=== PATIENT | male | born 1985 | race Caucasian/White ===

== ENCOUNTER 2017-09-21 09:49 | Emergency (ER) | payer MEDICAID ==
[~2017-09-21] VITALS: Ht 170.2 cm; Wt 66.0 kg
[2017-09-21] MEDS ORDERED: IBUPROFEN 600MG TABLET PO STA (11:50)
[2017-09-21 12:05] VITALS: BP 134/82
== END 2017-09-21 12:12 | disposition home or self-care (01) ==
LOC: ER 09:49
DX: M43.6 Torticollis (principal); F17.200 Nicotine dependence, unspecified, uncomplicated; F12.10 Cannabis abuse, uncomplicated; M25.512 Pain in left shoulder; M54.2 Cervicalgia
CPT/HCPCS: 99283

== ENCOUNTER 2020-01-23 20:27 | Inpatient (IN) | payer SELFPAY ==
[~2020-01-23] VITALS: Ht 172.7 cm; Wt 84.8 kg
[2020-01-23] MEDS ORDERED: SODIUM CHLORIDE 0.9% 1,000 ML IV ONE ×2 (20:55→22:00)
[2020-01-23] MEDS ORDERED: ONDANSETRON HCL 4MG/2ML INJ IV STA (20:55)
[2020-01-23] MEDS ORDERED: MORPHINE SULFATE 4 MG/ML CPJ (NOT FOR IM USE) IV STA (20:55)
[2020-01-23 21:10] LABS: HEMATOCRIT. 48.5 % (42.0-52.0); MEAN CORPUSCULAR HEMOGLOBIN 28.1 pg (28.0-32.0); MEAN CORPUSCULAR VOLUME 85.3 fL (80.0-94.0); MEAN PLATELET VOLUME 7.6 fl (7.4-10.4); PLATELET 335 x1000/uL (130-400); RED BLOOD CELL COUNT 5.69 mill/uL (4.7-6.1); RED CELL DISTRIBUTION WIDTH 14.3 % (11.6-14.6)
[2020-01-23 21:18] LABS: CHLORIDE 104 mEq/L (98-107)
[2020-01-23 21:21] LABS: PROTHROMBIN TIME 10.9 sec (9.6-11.0)
[2020-01-23 21:30] LABS: PLATELET ESTIMATE NORMAL
[2020-01-23] MEDS ORDERED: ONDANSETRON HCL 4MG/2ML INJ IV ONE (22:00)
[2020-01-23 23:00] LABS: CLARITY URINE CLOUDY (CLEAR); COLOR URINE YELLOW (YELLOW); KETONES URINE 3+ (NEGATIVE); LEUKOCYTE ESTERASE URINE NEGATIVE (NEGATIVE); NITRITE URINE NEGATIVE (NEGATIVE); OCCULT BLOOD URINE 1+ (NEGATIVE); PH URINE 5.5 (4.5-8.0); PROTEIN URINE 2+ (NEGATIVE); SPECIFIC GRAVITY URINE 1.032 (1.005-1.030)
[2020-01-24] MEDS ORDERED: CEFTRIAXONE 1 G PREMIX 50 ML IV ONE (00:45)
[2020-01-24] MEDS ORDERED: SODIUM CHLORIDE 0.9% 1000ML BAG (SEPSIS BOLUS) IV ONE (00:45)
[2020-01-24] MEDS ORDERED: METOCLOPRAMIDE HCL 10MG/2ML VIAL IV ONE (02:00)
[2020-01-24] MEDS ORDERED: CLONIDINE 0.1MG TABLET PO PRN (06:00)
[2020-01-24] MEDS ORDERED: MAGNESIUM/ALUMINUM HYDROXIDE/SIMETHICONE 30ML UDC PO PRN (06:00)
[2020-01-24] MEDS: DEXT 5%/0.45% NACL KCL 10MEQ/L 1,000 ML IV SCH (06:40)
[2020-01-24 08:33] VITALS: BP 123/55
[2020-01-24] MEDS: ONDANSETRON HCL 4MG/2ML INJ IV PRN (10:22)
[2020-01-24] MEDS ORDERED: THROAT LOZENGES-BENZOCAINE/MENTH/CETYLPYRD CL LOZENGES MM PRN (10:45)
[2020-01-24 12:00] VITALS: BP 153/87
[2020-01-24 16:00] VITALS: BP 146/88
[2020-01-25] MEDS: ONDANSETRON HCL 4MG/2ML INJ IV PRN ×2 (00:12→09:39)
[2020-01-25] MEDS: DEXT 5%/0.45% NACL KCL 10MEQ/L 1,000 ML IV SCH (02:54)
[2020-01-25 08:00] VITALS: BP 134/77
[2020-01-25 08:47] LABS: BASOPHILS % 0.5 % (0.0-2.0); EOSINOPHILS % 0.1 % (0.0-5.0); HEMATOCRIT. 43.6 % (42.0-52.0); HEMOGLOBIN. 14.4 g/dL (14.0-18.0); LYMPHOCYTES % 11.7 % (20.0-50.0); MEAN CORPUSCULAR HEMOGLOBIN 28.2 pg (28.0-32.0); MEAN CORPUSCULAR VOLUME 85.2 fL (80.0-94.0); MEAN PLATELET VOLUME 7.3 fl (7.4-10.4); NEUTROPHILS % 76.7 % (40.0-76.0); PLATELET 253 x1000/uL (130-400); RED BLOOD CELL COUNT 5.11 mill/uL (4.7-6.1); RED CELL DISTRIBUTION WIDTH 14.3 % (11.6-14.6)
[2020-01-25 08:59] LABS: CHLORIDE 106 mEq/L (98-107)
[2020-01-25 12:00] VITALS: BP 148/90
[2020-01-25 16:00] VITALS: BP 133/85
[2020-01-25 20:00] VITALS: BP 154/85
[2020-01-26] VITALS: BP 142/88
[2020-01-26 04:00] VITALS: BP 152/86
[2020-01-26 08:00] VITALS: BP 145/90
[2020-01-26 11:18] VITALS: BP 120/80
== END 2020-01-26 11:41 | disposition home or self-care (01) | DRG 249 ==
LOC: ER 20:27 → 6EST 01-24 01:33 → ENRESERV 01-24 07:20
PROVIDERS: ADMIT Hospitalist; ATTEND Hospitalist
DX: K52.9 Noninfective gastroenteritis and colitis, unspecified (principal); E86.0 Dehydration; E87.2 Acidosis; I10 Essential (primary) hypertension; J45.909 Unspecified asthma, uncomplicated
CPT/HCPCS: 36415; 71045; 80053; 81003; 83605; 85025; 93005; 99291; J0696; J2270; J2405; J2765; J7030

== ENCOUNTER 2020-02-19 21:31 | Emergency (ER) | payer SELFPAY ==
[~2020-02-19] VITALS: Ht 172.7 cm; Wt 82.0 kg
[2020-02-19] MEDS ORDERED: BACITRACIN ZINC OINT UDPKT TOP ONE (23:00)
[2020-02-19 23:24] VITALS: BP 135/75
== END 2020-02-19 23:32 | disposition home or self-care (01) ==
LOC: ER 21:31
DX: S41.112D Laceration without foreign body of left upper arm, subsequent encounter (principal); J45.909 Unspecified asthma, uncomplicated; F12.10 Cannabis abuse, uncomplicated; Z48.00 Encounter for change or removal of nonsurgical wound dressing; X58.XXXD Exposure to other specified factors, subsequent encounter
CPT/HCPCS: 99283

== ENCOUNTER 2020-05-05 11:12 | Inpatient (IN) | payer SELFPAY ==
[~2020-05-05] VITALS: Ht 172.7 cm; Wt 79.4 kg
[2020-05-05] MEDS ORDERED: ONDANSETRON HCL 4MG/2ML INJ IV STA (11:23)
[2020-05-05] MEDS ORDERED: SODIUM CHLORIDE 0.9% 1,000 ML IV ONE (11:30)
[2020-05-05 12:22] LABS: BASOPHILS % 0.1 % (0.0-2.0); HEMATOCRIT. 53.4 % (42.0-52.0); HEMOGLOBIN. 17.9 g/dL (14.0-18.0); LYMPHOCYTES % 10.9 % (20.0-50.0); MEAN CORPUSCULAR HEMOGLOBIN 28.3 pg (28.0-32.0); MEAN CORPUSCULAR VOLUME 84.6 fL (80.0-94.0); MEAN PLATELET VOLUME 8.5 fl (7.4-10.4); MONOCYTES % 13.3 % (2.0-8.0); NEUTROPHILS % 75.7 % (40.0-76.0); PLATELET 299 x1000/uL (130-400); RED BLOOD CELL COUNT 6.32 mill/uL (4.7-6.1); RED CELL DISTRIBUTION WIDTH 13.9 % (11.6-14.6)
[2020-05-05 12:39] LABS: CHLORIDE 82 mEq/L (98-107)
[2020-05-05 12:48] LABS: INR 1.1; PROTHROMBIN TIME 11.3 sec (9.6-11.0)
[2020-05-05] MEDS ORDERED: POTASSIUM CHLORIDE 20MEQ TABLET SR PO ONE (13:00)
[2020-05-05] MEDS ORDERED: POTASSIUM CHLORIDE INJ 40 MEQ in DEXT 5% WATER 250 ML IV ONE (13:00)
[2020-05-05 16:38] VITALS: BP 149/106
[2020-05-05] MEDS ORDERED: MORPHINE SULFATE 2 MG/ML CPJ (NOT FOR IM USE) IV PRN (17:45)
[2020-05-05] MEDS ORDERED: MAGNESIUM/ALUMINUM HYDROXIDE/SIMETHICONE 30ML UDC PO PRN (17:45)
[2020-05-05] MEDS ORDERED: LORAZEPAM 2MG/ML CPJ IV PRN (17:45)
[2020-05-05] MEDS ORDERED: HYDROCODONE/ACETAMINOPHEN 5/325MG TABLET PO PRN (17:45)
[2020-05-05] MEDS: ONDANSETRON HCL 4MG/2ML INJ IV PRN (18:16)
[2020-05-05] MEDS: POTASSIUM CHLORIDE 20MEQ TABLET SR PO SCH (18:16)
[2020-05-05] MEDS: SODIUM CHLORIDE 0.9% 1,000 ML IV SCH (18:17)
[2020-05-05] MEDS ORDERED: ENOXAPARIN 40MG/0.4ML SYR SUBCUT SCH (18:30)
[2020-05-05 20:50] VITALS: BP 146/90
[2020-05-05 23:24] LABS: CLARITY URINE CLEAR (CLEAR); COLOR URINE YELLOW (YELLOW); KETONES URINE TRACE (NEGATIVE); LEUKOCYTE ESTERASE URINE NEGATIVE (NEGATIVE); NITRITE URINE NEGATIVE (NEGATIVE); OCCULT BLOOD URINE 3+ (NEGATIVE); PH URINE 5.5 (4.5-8.0); PROTEIN URINE 2+ (NEGATIVE); SPECIFIC GRAVITY URINE 1.024 (1.005-1.030); UROBILINOGEN URINE 0.2 E.U./dL (0.2-1.0)
[2020-05-05 23:59] LABS: *AMPHETAMINES SCREEN URINE NEGATIVE (NEGATIVE)
[2020-05-06] LABS: *BARBITURATES SCREEN URINE NEGATIVE (NEGATIVE); *BENZODIAZEPINES SCREEN URINE NEGATIVE (NEGATIVE); *COCAINE SCREEN URINE NEGATIVE (NEGATIVE); METHADONE URINE SCREEN NEGATIVE (NEGATIVE); OPIATES URINE SCREEN NEGATIVE (NEGATIVE)
[2020-05-06 00:01] LABS: CANNABINOID URINE SCREEN PRESUMTIVE POSITIVE (NEGATIVE); PHENCYCLIDINE URINE SCREEN NEGATIVE (NEGATIVE)
[2020-05-06 00:41] VITALS: BP 157/93
[2020-05-06] MEDS: ONDANSETRON HCL 4MG/2ML INJ IV PRN ×3 (01:40→17:24)
[2020-05-06 04:00] VITALS: BP 126/81
[2020-05-06] MEDS: SODIUM CHLORIDE 0.9% 1,000 ML IV SCH ×4 (04:31→22:00)
[2020-05-06 08:09] LABS: BASOPHILS % 0.2 % (0.0-2.0); HEMATOCRIT. 50.1 % (42.0-52.0); HEMOGLOBIN. 16.8 g/dL (14.0-18.0); MEAN CORPUSCULAR HEMOGLOBIN 28.3 pg (28.0-32.0); MEAN CORPUSCULAR VOLUME 84.2 fL (80.0-94.0); MEAN PLATELET VOLUME 8.6 fl (7.4-10.4); MONOCYTES % 14.3 % (2.0-8.0); NEUTROPHILS % 71.5 % (40.0-76.0); PLATELET 249 x1000/uL (130-400); RED BLOOD CELL COUNT 5.94 mill/uL (4.7-6.1); RED CELL DISTRIBUTION WIDTH 13.5 % (11.6-14.6)
[2020-05-06] MEDS: POTASSIUM CHLORIDE 20MEQ TABLET SR PO SCH ×2 (08:18→17:00)
[2020-05-06] MEDS: FOLIC ACID 1MG TABLET PO SCH (08:19)
[2020-05-06 08:41] VITALS: BP 120/57
[2020-05-06 12:22] VITALS: BP 135/78
[2020-05-06 16:06] VITALS: BP 127/79
[2020-05-06] MEDS ORDERED: ENOXAPARIN 40MG/0.4ML SYR SUBCUT SCH (17:00)
[2020-05-06] MEDS: METOCLOPRAMIDE HCL 10MG/2ML VIAL IV SCH (17:25)
[2020-05-06] MEDS ORDERED: PANTOPRAZOLE SODIUM 40 MG/VIAL IV SCH (17:30)
[2020-05-06 20:51] VITALS: BP 130/83
[2020-05-06] MEDS: PANTOPRAZOLE SODIUM 40 MG/VIAL IV SCH (22:00)
[2020-05-07] MEDS: AZITHROMYCIN 500 MG in DEXT 5% WATER 250 ML IV SCH ×2 (00:07→22:25)
[2020-05-07] MEDS: CEFTRIAXONE 1,000 MG in DEXTROSE 5% WATER 50 ML IV SCH ×2 (00:07→22:25)
[2020-05-07] MEDS: METOCLOPRAMIDE HCL 10MG/2ML VIAL IV SCH ×4 (00:07→17:18)
[2020-05-07] MEDS: ACETAMINOPHEN 325MG TABLET PO PRN ×2 (00:08→13:32)
[2020-05-07 00:22] VITALS: BP 132/89
[2020-05-07 04:00] VITALS: BP 158/99
[2020-05-07] MEDS: SODIUM CHLORIDE 0.9% 1,000 ML IV SCH ×4 (05:18→22:27)
[2020-05-07 07:37] LABS: HEMATOCRIT. 47.5 % (42.0-52.0); HEMOGLOBIN. 15.8 g/dL (14.0-18.0); MEAN CORPUSCULAR HEMOGLOBIN 28.1 pg (28.0-32.0); MEAN CORPUSCULAR VOLUME 84.4 fL (80.0-94.0); PLATELET 223 x1000/uL (130-400); RED BLOOD CELL COUNT 5.63 mill/uL (4.7-6.1); RED CELL DISTRIBUTION WIDTH 13.4 % (11.6-14.6)
[2020-05-07 08:00] VITALS: BP 144/87
[2020-05-07 08:08] LABS: CHLORIDE 101 mEq/L (98-107)
[2020-05-07 08:37] LABS: CREATINE KINASE 1619 IU/L (39-308)
[2020-05-07] MEDS: DEXAMETHASONE 4MG TABLET PO SCH (10:25)
[2020-05-07] MEDS: FOLIC ACID 1MG TABLET PO SCH (10:25)
[2020-05-07] MEDS: PANTOPRAZOLE SODIUM 40 MG/VIAL IV SCH ×2 (10:25→22:25)
[2020-05-07] MEDS: POTASSIUM CHLORIDE 20MEQ TABLET SR PO SCH ×2 (10:25→16:20)
[2020-05-07] MEDS ORDERED: POTASSIUM CHLORIDE 20MEQ TABLET SR PO NR (11:45)
[2020-05-07 12:00] VITALS: BP 150/98
[2020-05-07] MEDS ORDERED: DIATR MEGLU/DIATRIZOATE SOLN 30ML PO NR (15:30)
[2020-05-07 16:00] VITALS: BP 144/91
[2020-05-07] MEDS ORDERED: LORAZEPAM 2MG/ML CPJ IV NR (18:00)
[2020-05-07 20:00] VITALS: BP 144/90
[2020-05-07 21:50] LABS: PLATELET ESTIMATE NORMAL
[2020-05-08] VITALS: BP 153/96
[2020-05-08] MEDS: METOCLOPRAMIDE HCL 10MG/2ML VIAL IV SCH ×3 (00:56→11:21)
[2020-05-08 04:00] VITALS: BP 156/99
[2020-05-08] MEDS: SODIUM CHLORIDE 0.9% 1,000 ML IV SCH ×2 (04:12→11:21)
[2020-05-08 06:37] LABS: CHLORIDE 105 mEq/L (98-107)
[2020-05-08 06:48] LABS: AMYLASE 212 IU/L (25-115)
[2020-05-08 06:54] LABS: CREATINE KINASE 796 IU/L (39-308)
[2020-05-08 06:58] LABS: HEMATOCRIT. 45.2 % (42.0-52.0); HEMOGLOBIN. 14.8 g/dL (14.0-18.0); MEAN CORPUSCULAR HEMOGLOBIN 27.9 pg (28.0-32.0); MEAN CORPUSCULAR VOLUME 84.9 fL (80.0-94.0); PLATELET 237 x1000/uL (130-400); RED BLOOD CELL COUNT 5.32 mill/uL (4.7-6.1)
[2020-05-08 08:00] VITALS: BP 153/88
[2020-05-08] MEDS: FOLIC ACID 1MG TABLET PO SCH (08:27)
[2020-05-08] MEDS: DEXAMETHASONE 4MG TABLET PO SCH (08:27)
[2020-05-08] MEDS: POTASSIUM CHLORIDE 20MEQ TABLET SR PO SCH (08:27)
[2020-05-08] MEDS: PANTOPRAZOLE SODIUM 40 MG/VIAL IV SCH (08:27)
[2020-05-08] MEDS: ONDANSETRON HCL 4MG/2ML INJ IV PRN (11:22)
[2020-05-08 11:38] VITALS: BP 150/92
[2020-05-08 12:58] LABS: PLATELET ESTIMATE NORMAL
[2020-05-08] MEDS ORDERED: METO-293 MT (13:32)
[2020-05-08 14:16] VITALS: BP 140/85
== END 2020-05-08 15:00 | disposition home or self-care (01) | DRG 720 ==
LOC: ER 11:12 → 6WST 13:43 → EDBEDREQ 13:55 → EDBEDREQTM 13:55 → ENRESERV 16:09 → 7EST 05-06 23:32
PROVIDERS: ADMIT Internal Medicine Nephrology; ATTEND Internal Medicine Nephrology
DX: A41.89 Other specified sepsis (principal); U07.1 COVID-19; J12.89 Other viral pneumonia; E87.1 Hypo-osmolality and hyponatremia; E87.6 Hypokalemia; E87.8 Other disorders of electrolyte and fluid balance, not elsewhere classified; K22.6 Gastro-esophageal laceration-hemorrhage syndrome; N17.9 Acute kidney failure, unspecified; F12.90 Cannabis use, unspecified, uncomplicated; F17.210 Nicotine dependence, cigarettes, uncomplicated; J45.909 Unspecified asthma, uncomplicated; N18.9 Chronic kidney disease, unspecified; N20.0 Calculus of kidney; K59.00 Constipation, unspecified; M62.82 Rhabdomyolysis; B97.89 Other viral agents as the cause of diseases classified elsewhere; K80.20 Calculus of gallbladder without cholecystitis without obstruction; E86.9 Volume depletion, unspecified; D18.03 Hemangioma of intra-abdominal structures; K52.9 Noninfective gastroenteritis and colitis, unspecified; Z80.1 Family history of malignant neoplasm of trachea, bronchus and lung; Z74.01 Bed confinement status
CPT/HCPCS: 36415; 71045; 74176; 76700; 76770; 80048; 80053; 80305; 81003; 82150; 82550; 83735; 83880; 84450; 85025; 87426; 87635; 99291; C9113; J0456; J0696; J1650; J2060; J2405; J2765; J3480; J7030; J7060; J8540; Q9963

== ENCOUNTER 2021-04-04 10:04 | Inpatient (IN) | payer SELFPAY ==
[~2021-04-04] VITALS: Ht 172.7 cm; Wt 89.9 kg
[~2021-04-04 10:04] MED LIST: METO-293 MT
[2021-04-04] MEDS ORDERED: KETOROLAC 30MG/ML VIAL IV STA (10:26)
[2021-04-04] MEDS ORDERED: ONDANSETRON HCL 4MG/2ML INJ IV STA (10:26)
[2021-04-04] MEDS ORDERED: SODIUM CHLORIDE 0.9% 1,000 ML IV ONE (10:30)
[2021-04-04 10:49] LABS: BASOPHILS % 0.4 % (0.0-2.0); EOSINOPHILS % 0.3 % (0.0-5.0); HEMATOCRIT. 47.4 % (42.0-52.0); HEMOGLOBIN. 15.7 g/dL (14.0-18.0); MEAN CORPUSCULAR HEMOGLOBIN 28.4 pg (28.0-32.0); MEAN CORPUSCULAR VOLUME 85.9 fL (80.0-94.0); MEAN PLATELET VOLUME 7.5 fl (7.4-10.4); MONOCYTES % 5.8 % (2.0-8.0); NEUTROPHILS % 77.5 % (40.0-76.0); PLATELET 288 x1000/uL (130-400); RED BLOOD CELL COUNT 5.51 mill/uL (4.7-6.1); RED CELL DISTRIBUTION WIDTH 13.1 % (11.6-14.6)
[2021-04-04 10:54] LABS: CHLORIDE 107 mEq/L (98-107)
[2021-04-04 10:56] LABS: PROTHROMBIN TIME 10.7 sec (9.6-11.0)
[2021-04-04 10:58] LABS: ETHANOL BLOOD < 10 mg/dL
[2021-04-04] MEDS ORDERED: METOCLOPRAMIDE HCL 10MG/2ML VIAL IV ONE (11:30)
[2021-04-04 11:37] LABS: CLARITY URINE TURBID (CLEAR); COLOR URINE YELLOW (YELLOW); KETONES URINE NEGATIVE (NEGATIVE); LEUKOCYTE ESTERASE URINE NEGATIVE (NEGATIVE); NITRITE URINE NEGATIVE (NEGATIVE); OCCULT BLOOD URINE NEGATIVE (NEGATIVE); PH URINE 8.5 (4.5-8.0); PROTEIN URINE 1+ (NEGATIVE)
[2021-04-04 11:51] LABS: *AMPHETAMINES SCREEN URINE NEGATIVE (NEGATIVE)
[2021-04-04 11:52] LABS: *BARBITURATES SCREEN URINE NEGATIVE (NEGATIVE); *BENZODIAZEPINES SCREEN URINE NEGATIVE (NEGATIVE); *COCAINE SCREEN URINE NEGATIVE (NEGATIVE); METHADONE URINE SCREEN NEGATIVE (NEGATIVE); OPIATES URINE SCREEN NEGATIVE (NEGATIVE); PHENCYCLIDINE URINE SCREEN NEGATIVE (NEGATIVE)
[2021-04-04 11:53] LABS: CANNABINOID URINE SCREEN PRESUMTIVE POSITIVE (NEGATIVE)
[2021-04-04] MEDS ORDERED: ACETAMINOPHEN 325MG TABLET PO PRN (13:00)
[2021-04-04 13:05] LABS: AMYLASE 341 IU/L (25-115)
[2021-04-04] MEDS ORDERED: NA PHOS,M-B/NA PHOS,DI-BA ENEMA 118ML PR PRN (18:45)
[2021-04-04] MEDS ORDERED: CLONIDINE 0.1MG TABLET PO PRN (18:45)
[2021-04-04] MEDS ORDERED: ONDANSETRON HCL 4MG/2ML INJ IV PRN ×2 (18:45→21:30)
[2021-04-04] MEDS ORDERED: MAGNESIUM/ALUMINUM HYDROXIDE/SIMETHICONE 30ML UDC PO PRN (18:45)
[2021-04-04] MEDS ORDERED: MORPHINE SULFATE 2 MG/ML CPJ (NOT FOR IM USE) IV PRN (18:45)
[2021-04-04] MEDS: SODIUM CHLORIDE 0.9% 1,000 ML IV SCH (19:31)
[2021-04-04] MEDS: ENOXAPARIN 30MG/0.3ML SYR SUBCUT SCH (21:18)
[2021-04-04] MEDS ORDERED: NALOXONE HCL 0.4MG/ML VIAL IV PRN (21:30)
[2021-04-04 23:10] VITALS: BP_SYST 132; BP_SYST 133; BP_DIAS 74; BP_DIAS 79
[2021-04-05] MEDS: SODIUM CHLORIDE 0.9% 1,000 ML IV SCH ×3 (02:34→21:40)
[2021-04-05 04:00] VITALS: BP 121/72
[2021-04-05 06:47] LABS: BASOPHILS % 0.3 % (0.0-2.0); EOSINOPHILS % 0.5 % (0.0-5.0); HEMATOCRIT. 41.7 % (42.0-52.0); HEMOGLOBIN. 13.7 g/dL (14.0-18.0); LYMPHOCYTES % 34.2 % (20.0-50.0); MEAN CORPUSCULAR HEMOGLOBIN 28.2 pg (28.0-32.0); MEAN CORPUSCULAR VOLUME 85.8 fL (80.0-94.0); MONOCYTES % 11.4 % (2.0-8.0); NEUTROPHILS % 53.6 % (40.0-76.0); PLATELET 248 x1000/uL (130-400); RED BLOOD CELL COUNT 4.86 mill/uL (4.7-6.1); RED CELL DISTRIBUTION WIDTH 12.9 % (11.6-14.6)
[2021-04-05 06:49] LABS: CHLORIDE 110 mEq/L (98-107)
[2021-04-05 07:02] LABS: LDL CHOLESTEROL 70 mg/dL (5-100)
[2021-04-05 07:03] LABS: HDL CHOLESTEROL 50 mg/dL (40-59)
[2021-04-05 08:00] VITALS: BP 123/72
[2021-04-05] MEDS: ENOXAPARIN 30MG/0.3ML SYR SUBCUT SCH ×2 (09:16→21:40)
[2021-04-05 11:57] VITALS: BP 133/82
[2021-04-05 12:26] LABS: CHLORIDE 112 mEq/L (98-107)
[2021-04-05 20:00] VITALS: BP 125/85
[2021-04-06] VITALS: BP 127/75
[2021-04-06 04:00] VITALS: BP 130/82
[2021-04-06] MEDS: SODIUM CHLORIDE 0.9% 1,000 ML IV SCH ×2 (04:23→12:10)
[2021-04-06 08:00] VITALS: BP 151/87
[2021-04-06 08:00] LABS: CHLORIDE 111 mEq/L (98-107)
[2021-04-06 08:11] LABS: BASOPHILS % 0.6 % (0.0-2.0); EOSINOPHILS % 1.5 % (0.0-5.0); HEMATOCRIT. 40.8 % (42.0-52.0); HEMOGLOBIN. 13.4 g/dL (14.0-18.0); LYMPHOCYTES % 42.5 % (20.0-50.0); MEAN CORPUSCULAR HEMOGLOBIN 28.1 pg (28.0-32.0); MEAN CORPUSCULAR VOLUME 85.4 fL (80.0-94.0); MEAN PLATELET VOLUME 7.9 fl (7.4-10.4); MONOCYTES % 11.7 % (2.0-8.0); NEUTROPHILS % 43.7 % (40.0-76.0); PLATELET 253 x1000/uL (130-400); RED BLOOD CELL COUNT 4.78 mill/uL (4.7-6.1); RED CELL DISTRIBUTION WIDTH 12.7 % (11.6-14.6)
[2021-04-06] MEDS: ENOXAPARIN 30MG/0.3ML SYR SUBCUT SCH (09:00)
[2021-04-06 12:00] VITALS: BP 127/85
[2021-04-06 16:00] VITALS: BP 140/87
[2021-04-06 17:44] VITALS: BP 140/87
[2021-04-07 09:50] VITALS: BP 135/85
[2021-04-07 12:00] VITALS: BP 135/85
== END 2021-04-06 18:12 | disposition home or self-care (01) | DRG 282 ==
LOC: ER 10:04 → 6EST 12:56 → EDBEDREQ 13:01 → ENRESERV 22:40
PROVIDERS: ADMIT Family Medicine; ATTEND Family Medicine
DX: K85.90 Acute pancreatitis without necrosis or infection, unspecified (principal); E86.0 Dehydration; J45.909 Unspecified asthma, uncomplicated; Z20.822 Contact with and (suspected) exposure to COVID-19; R73.9 Hyperglycemia, unspecified; F12.90 Cannabis use, unspecified, uncomplicated; K80.80 Other cholelithiasis without obstruction; Z79.899 Other long term (current) drug therapy
CPT/HCPCS: 36415; 71045; 76700; 80048; 80053; 80061; 80305; 80320; 81003; 82150; 85025; 93005; 99285; C9803; J1650; J1885; J2405; J2765; J7030; U0003; U0005; G0480

== ENCOUNTER 2021-08-25 18:05 | Inpatient (IN) | payer SELFPAY ==
[~2021-08-25] VITALS: Ht 172.7 cm; Wt 78.1 kg
[2021-08-25] MEDS ORDERED: SODIUM CHLORIDE 0.9% 1,000 ML IV ONE ×2 (18:15→21:15)
[2021-08-25] MEDS ORDERED: ONDANSETRON HCL 4MG/2ML INJ IV ONE ×2 (18:45→20:15)
[2021-08-25] MEDS ORDERED: KETOROLAC 15MG/ML VIAL IV ONE (18:45)
[2021-08-25 19:04] LABS: BASOPHILS % 0.5 % (0.0-2.0); EOSINOPHILS % 0.1 % (0.0-5.0); HEMATOCRIT. 51.5 % (42.0-52.0); HEMOGLOBIN. 17.3 g/dL (14.0-18.0); LYMPHOCYTES % 20.3 % (20.0-50.0); MEAN CORPUSCULAR HEMOGLOBIN 28.1 pg (28.0-32.0); MEAN CORPUSCULAR VOLUME 83.8 fL (80.0-94.0); MEAN PLATELET VOLUME 7.9 fl (7.4-10.4); MONOCYTES % 13.6 % (2.0-8.0); NEUTROPHILS % 65.5 % (40.0-76.0); PLATELET 295 x1000/uL (130-400); RED BLOOD CELL COUNT 6.15 mill/uL (4.7-6.1); RED CELL DISTRIBUTION WIDTH 13.9 % (11.6-14.6)
[2021-08-25 19:13] LABS: CHLORIDE 98 mEq/L (98-107)
[2021-08-25] MEDS ORDERED: MORPHINE SULFATE 4 MG/ML CPJ (NOT FOR IM USE) IV ONE (20:15)
[2021-08-26 09:30] VITALS: BP 118/83
[2021-08-26] MEDS ORDERED: ACETAMINOPHEN 325MG TABLET PO PRN (11:30)
[2021-08-26] MEDS ORDERED: ONDANSETRON HCL 4MG/2ML INJ IV PRN (11:30)
[2021-08-26] MEDS ORDERED: POTASSIUM CHLORIDE 20MEQ TABLET SR PO NR (11:30)
[2021-08-26] MEDS ORDERED: KETOROLAC 30MG/ML VIAL IV PRN (11:30)
[2021-08-26 12:00] VITALS: BP 122/53
[2021-08-26 16:00] VITALS: BP 115/66
[2021-08-26 17:00] VITALS: BP 115/66
== END 2021-08-26 18:17 | disposition home or self-care (01) | DRG 282 ==
LOC: ER 18:05 → 5WST 22:34 → EDBEDREQ 22:36 → EDBEDREQTM 22:36 → ENRESERV 08-26 07:36
PROVIDERS: ADMIT Internal Medicine; ATTEND Internal Medicine
DX: K85.10 Biliary acute pancreatitis without necrosis or infection (principal); N17.0 Acute kidney failure with tubular necrosis; E87.6 Hypokalemia; F17.200 Nicotine dependence, unspecified, uncomplicated; J45.909 Unspecified asthma, uncomplicated; Z20.822 Contact with and (suspected) exposure to COVID-19; K80.20 Calculus of gallbladder without cholecystitis without obstruction; Z79.899 Other long term (current) drug therapy
CPT/HCPCS: 36415; 71045; 76705; 80053; 83605; 84145; 85025; 87426; 93005; 99285; J1885; J2270; J2405; J7030

== ENCOUNTER 2022-10-19 17:46 | Emergency (ER) | payer MEDICAID, OTHER ==
[~2022-10-19] VITALS: Ht 172.7 cm; Wt 68.0 kg
[2022-10-19 19:10] LABS: BASOPHILS % 0.3 % (0.0-2.0); EOSINOPHILS % 0.3 % (0.0-5.0); HEMATOCRIT. 42.9 % (42.0-52.0); HEMOGLOBIN. 14.4 g/dL (14.0-18.0); LYMPHOCYTES % 16.2 % (20.0-50.0); MEAN CORPUSCULAR HEMOGLOBIN 28.6 pg (28.0-32.0); MEAN CORPUSCULAR VOLUME 85.5 fL (80.0-94.0); MEAN PLATELET VOLUME 7.4 fl (7.4-10.4); MONOCYTES % 5.8 % (2.0-8.0); NEUTROPHILS % 77.4 % (40.0-76.0); PLATELET 285 x1000/uL (130-400); RED BLOOD CELL COUNT 5.02 mill/uL (4.7-6.1); RED CELL DISTRIBUTION WIDTH 13.3 % (11.6-14.6)
[2022-10-19 19:32] LABS: CHLORIDE 110 mEq/L (98-107)
[2022-10-19] MEDS ORDERED: ONDANSETRON HCL 4MG/2ML INJ IV NR (23:33)
[2022-10-19] MEDS ORDERED: MORPHINE SULFATE 4 MG/ML CPJ (NOT FOR IM USE) IV NR (23:33)
[2022-10-19] MEDS ORDERED: POTASSIUM CHLORIDE 20MEQ TABLET SR PO NR (23:45)
[2022-10-19] MEDS ORDERED: SODIUM CHLORIDE 0.9% 1,000 ML IV ONE (23:45)
[2022-10-20 00:33] VITALS: BP 144/80
[2022-10-20] MEDS ORDERED: ONDA4TAB50 MT (01:31)
[2022-10-20] MEDS ORDERED: ONDANSETRON HCL 4MG/2ML INJ IV ONE (02:45)
== END 2022-10-20 04:00 | disposition home or self-care (01) ==
LOC: ER 17:46
DX: R10.11 Right upper quadrant pain (principal); J45.909 Unspecified asthma, uncomplicated
CPT/HCPCS: 36415; 76705; 80053; 83690; 85025; 96361; 96374; 96375; 96376; 99285; J2270; J2405; Z7610

== ENCOUNTER 2023-12-11 05:48 | Emergency (ER) | payer MEDICAID, OTHER ==
[~2023-12-11] VITALS: Ht 172.7 cm; Wt 68.0 kg
[~2023-12-11 05:48] MED LIST changes: +ONDA4TAB50 MT
[2023-12-11 06:06] VITALS: BP 117/71; PULSE 100; RESP 18; TEMP 98.2; O2SAT 97
== END 2023-12-11 09:44 | disposition home or self-care (01) ==
LOC: ER 05:57
DX: S69.81XA Other specified injuries of right wrist, hand and finger(s), initial encounter (principal); M25.531 Pain in right wrist; Y08.89XA Assault by other specified means, initial encounter; Y93.89 Activity, other specified; Y92.89 Other specified places as the place of occurrence of the external cause; Y99.8 Other external cause status
CPT/HCPCS: 73110; 73130; 99284

== ENCOUNTER 2024-02-23 15:07 | Emergency (ER) | payer MEDICAID, OTHER ==
[~2024-02-23] VITALS: Ht 172.7 cm; Wt 68.0 kg
[2024-02-23 15:12] VITALS: O2SAT 98
[2024-02-23] MEDS: KETOROLAC 15MG/ML VIAL IM ONE (17:28)
[2024-02-23] MEDS ORDERED: AMOX1TAB16 MT (18:16)
[2024-02-23] MEDS ORDERED: NAPR-1176 MT (18:16)
[2024-02-23 18:41] VITALS: BP 117/89; PULSE 98; TEMP 37.11408; O2SAT 98
== END 2024-02-23 18:43 | disposition home or self-care (01) ==
LOC: ER 15:07
DX: S91.012D Laceration without foreign body, left ankle, subsequent encounter (principal); X58.XXXD Exposure to other specified factors, subsequent encounter; Z79.899 Other long term (current) drug therapy
CPT/HCPCS: 99283; 96372; J1885